=== PATIENT | male | born 1965 | race Two or more races ===

== ENCOUNTER 2023-01-28 10:12 | Emergency (ER) | payer OTHER, SELFPAY ==
[2023-01-28 10:20] VITALS: BP 200/112; PULSE 120; RESP 20; TEMP 39.3; O2SAT 93; BMI 49.9
--- NOTE | 2023-01-28 10:33 | CRLHL7_ITS ---
For Patients: As a result of the Century Cures Act, medical imaging exams and procedure reports are released immediately into your electronic medical record. You may view this report before your referring provider. If you have questions, please contact your health care provider. INDICATION: Cough TECHNIQUE: Chest 1 view. COMPARISON: 13 October 2017 FINDINGS: Cardiovascular and mediastinum: Heart size and vasculature are normal in caliber and appearance. Mediastinum is within normal limits. Lungs and pleural space: Lungs are clear. No sign of infiltrate or mass. No sign of pleural effusion. No pneumothorax. Bones and soft tissues: No significant findings. IMPRESSION: Unremarkable chest. Dictated by Tato Thakur MD @ 01/28/2023 10:53:30 AM (Electronically Signed)
--- NOTE | 2023-01-28 10:36 | ED.GENADULT ---
HPI - General Adult General Time Seen by Provider: 10:36 Date Seen: 01/28/23 Chief complaint: Cough Stated complaint: Cough, pain in back, weakness Time Seen by Provider: 01/28/23 10:26 Source: patient Mode of arrival: ambulatory Limitations: no limitations History of Present Illness HPI narrative: Patient is a 57-year-old [id number] male who through his daughter reports after they declined [email or web address], that he has severe cough, body aches, weakness. He has had a temperature, he has had a cough. His daughter reports that he does smoke. She reports also she has had the COVID vaccine. He takes no medications at home, he has had no chronic respiratory problems he has had no history of chest pain or cardiac disease, he has had no history of COPD. The patient has no rigors but is very weak. He feels short of breath with exertion. Related Data Previous Rx's Medication Instructions Recorded hydrocodone 5 mg-acetaminophen 325 1 tab PO BID PRN pain #7 tabs 01/28/23 mg tablet Allergies Allergy/AdvReac Type Severity Reaction Status Date / Time No Known Drug Allergies Allergy Verified 01/28/23 10:19 Review of Systems Status of ROS: Reports: 6 or more systems reviewed and unremarkable except as noted in History and below PFSH PFS Social History Non-prescribed substance use: denies use Exam Narrative: Exam Narrative: Objective: Temp is 102.8? Pulse is 120 Blood pressure 200/112 O2 sat 93% on room air Alert orient x3 Noncyanotic Does appear in [id number] discomfort from illness. HEENT is unremarkable and dry mucous membranes neck supple chest diminished air exchange bilaterally Heart rhythm regular 2/6 systolic murmur Abdomen obese benign nontender Extremities are no edema neurologic nonfocal Patient is weak and with standing and walking he feels like he has to sit down. Const: Vital Signs, click to edit/add: Vital Signs - 24 hr 01/28/23 10:20 01/28/23 11:34 01/28/23 11:35 Temperature 102.8 F H Pulse Rate 115 H 113 H Pulse Rate [Pulse Oximeter] 120 H Respiratory Rate 20 Blood Pressure 177/96 H Blood Pressure [Ri ght Upper Arm] 200/112 H Pulse Oximetry 93 91 92 Oxygen Delivery Me thod Room Air 01/28/23 11:45 01/28/23 12:00 01/28/23 12:02 Temperature Pulse Rate 115 H 107 H 108 H Pulse Rate [Pulse Oximeter] Respiratory Rate Blood Pressure 172/96 H Blood Pressure [Ri ght Upper Arm] Pulse Oximetry 90 93 93 Oxygen Delivery Me thod Course Vital Signs Vital signs: Initial Vital Signs Temperature 102.8 F H 01/28/23 10:20 Temperature Source Temporal Artery Scan 01/28/23 10:20 Pulse Rate 120 H 01/28/23 10:20 Respiratory Rate 20 01/28/23 10:20 Blood Pressure 200/112 H 01/28/23 10:20 Blood Pressure Mean 141 H 01/28/23 10:20 Pulse Oximetry 93 01/28/23 10:20 Oxygen Delivery Method Room Air 01/28/23 10:20 Vital Signs Temperature 102.8 F H 01/28/23 10:20 Pulse Rate 120 H 01/28/23 10:20 Respiratory Rate 20 01/28/23 10:20 Blood Pressure 200/112 H 01/28/23 10:20 Pulse Oximetry 93 01/28/23 10:20 Oxygen Delivery Method Room Air 01/28/23 10:20 Temperature 102.8 F H 01/28/23 10:20 Pulse Rate 108 H 01/28/23 12:02 Respiratory Rate 20 01/28/23 10:20 Blood Pressure 172/96 H 01/28/23 12:02 Pulse Oximetry 93 01/28/23 12:02 Oxygen Delivery Method Room Air 01/28/23 10:20 Medications Administered Medications: Discontinued Medications Generic Name Dose Route Start Last Admin Trade Name Bryan PRN Reason Stop Dose Admin Acetaminophen 1,000 mg 01/28/23 10:33 01/28/23 11:00 Acetaminophen 500 Mg Tablet PO 01/28/23 10:34 1,000 mg ONCE ONE Administration Hydrocodone Bitart/Acetaminophen 1 tab 01/28/23 11:11 01/28/23 11:39 Hydrocodone/Acetamin 7.5-325 Tablet PO 01/28/23 11:12 1 tab ONCE ONE Administration Sodium Chloride 1,000 mls @ 6,000 mls/hr 01/28/23 10:45 01/28/23 11:00 0.9 % Sodium Chloride 1000 Ml IV 01/28/23 10:54 6,000 mls/hr .Q10M BIANCA Administration Ibuprofen 800 mg 01/28/23 11:11 01/28/23 11:38 Ibuprofen 400 Mg Tablet PO 01/28/23 11:12 800 mg ONCE ONE Administration Medical Decision Making MDM Narrative Medical decision making narrative: 57-year-old male smoker with significant fever of 102.8, cough, rule out pneumonia, rule out COVID/influenza/RSV. Patient will get a chest x-ray, blood cultures, viral studies, electrolytes and labs. IV fluid 1 L, antibiotics if x-ray looks suspicious. Disposition pending findings above The patient's chest x-ray by my review looks unremarkable. Addendum: 11:51 a.m. patient is positive for RSV, negative for COVID influenza. Chest x-ray looks largely unremarkable, lab studies look pretty reasonable as well with white count minimally elevated at 15,450 thousand four hundred fifty hemoglobin 16.7 your profile shows a slightly low potassium 3.2 glucose nonfasting 160 lactate 2.1 CRP 3.5 and again RSV is positive. Will give a trial of some [place] as needed for cough suppression and pain relief, may use Advil as needed, recheck with regular doctor in a couple of days recommend off activity off work for 3 days. Also if not feeling better would recommend recheck. Lab Data Labs: Lab Results 01/28/23 01/28/23 Range/Units 10:25 11:00 WBC 15.45 H (4.50-11.00) K/uL RBC 5.25 (4.30-5.90) m/uL Hgb 16.7 (13.5-17.5) gm/dL Hct 48.2 (37.0-53.0) % MCV 92 (80-100) fL MCH 32 (26-34) pg MCHC 35 (32-36) gm/dL RDW Coeff of Arielle 12.7 (11.5-15.5) % Plt Count 150 (140-440) K/uL Neut % (Auto) 90.1 H (42.0-72.0) % Lymph % (Auto) 2.7 L (20-44) % Dane % (Auto) 6.9 (0.0-11.0) % Eos % (Auto) 0.0 (0.0-7.0) % Baso % (Auto) 0.1 (0.0-3.0) % Neut # (Auto) 13.90 H (1.7-7.0) K/uL Lymph # (Auto) 0.40 L (0.90-2.90) K/uL Dane # (Auto) 1.10 H (0.00-0.90) K/UL Eos # (Auto) 0.00 (0.00-0.50) K/uL Baso # (Auto) 0.00 (0.00-0.30) K/uL Abs Immat Gran (auto) 0.00 (0.00-0.30) K/uL Imm/Tot Granulo (auto) 0.2 % Sodium 135 (135-149) mmol/L Potassium 3.2 L (3.6-5.1) mmol/L Chloride 100 (96-114) mmol/L Carbon Dioxide 22 (20-32) mmol/L Anion Gap 13 (7-15) mEq/L BUN 10 (7-30) mg/dL Creatinine 0.6 (0.5-1.5) mg/dL Estimated Creat Clear 118.16 Estimated GFR 113 ml/min Glucose 160 H (60-115) mg/dL Lactate 2.1 H (0.5-1.9) mmol/L Calcium 9.0 (8.4-10.6) mg/dL Total Bilirubin 0.7 (0.1-1.5) mg/dL Direct Bilirubin 0.0 (0.0-0.5) mg/dL AST 38 H (12-35) U/L ALT 35 (4-50) U/L Alkaline Phosphatase 89 (40-150) U/L C-Reactive Protein 3.5 H (0.5-1.0) mg/dL NT-Pro-B Natriuret Pep 1280 pg/mL Total Protein 8.3 (6.0-8.3) g/dL Albumin 4.9 (3.3-5.0) g/dL SARS-CoV-2 (PCR) Negative SARS-CoV-2 (Negative) Influenza Type A (PCR) Negative PCR FLU A (Negative) Influenza Type B (PCR) Negative PCR FLU B (Negative) RSV (PCR) POSITIVE PCR RSV A (Negative) Discharge Plan Discharge Clinical Impression: Cough with fever, RSV infection Patient Disposition: Home w/ Parent or Adult Condition: Stable Instructions: RSV (Respiratory Syncytial Virus) (ED) Additional Instructions: Rest, Tylenol, may use ibuprofen as well, will give you a few tablets of a medicine called Ammon for pain relief and some cough suppression. Recommend you avoid work for the next 3-4 days, you have an RSV infection which is severe cold infection. Return to ED as needed problems or concerns. Recommend he drink lots of water and fluids. Activity Level: Light activity Activity Detail: off work x 3 days Prescriptions: New hydrocodone-acetaminophen 5-325 mg tablet 1 tab PO BID PRN (Reason: pain) Qty: 7 0RF Stand Alone Forms: [employer] Info Instructions
[2023-01-28] MEDS: 0.9 % SODIUM CHLORIDE 1000 ml 1,000 ML 6000 ML IV (11:00)
[2023-01-28] MEDS: ACETAMINOPHEN 500 MG TABLET 1000 MG PO (11:00)
[2023-01-28 11:06] LABS: PCR FLU A Negative PCR FLU A (Negative); PCR FLU B Negative PCR FLU B (Negative); PCR RSV POSITIVE PCR RSV (Negative)
[2023-01-28 11:08] LABS: SARS PCR* Negative SARS-CoV-2 (Negative)
[2023-01-28 11:12] LABS: Lactate* 2.1 mmol/L (0.5-1.9)
[2023-01-28 11:15] LABS: Basophils Percent Auto 0.1 % (0.0-3.0); Hematocrit 48.2 % (37.0-53.0); Hemoglobin* 16.7 gm/dL (13.5-17.5); Immature Granulocytes Pct Auto 0.2 %; Lymphocytes Percent Auto 2.7 % (20-44); Mean Corpuscular HGB Conc 35 gm/dL (32-36); Mean Corpuscular Hemoglobin 32 pg (26-34); Mean Corpuscular Volume 92 fL (80-100); Monocytes Percent Auto 6.9 % (0.0-11.0); Neutrophils Percent Auto 90.1 % (42.0-72.0); Platelet Count* 150 K/uL (140-440); RDW Coefficient of Variation % 12.7 % (11.5-15.5); Red Blood Count 5.25 m/uL (4.30-5.90); White Blood Count* 15.45 K/uL (4.50-11.00)
[2023-01-28 11:21] LABS: Slide Review Reflex No
[2023-01-28 11:27] LABS: Albumin* 4.9 g/dL (3.3-5.0); Chloride* 100 mmol/L (96-114)
[2023-01-28 11:28] LABS: Potassium* 3.2 mmol/L (3.6-5.1); Sodium* 135 mmol/L (135-149)
[2023-01-28 11:30] LABS: Anion Gap 13 mEq/L (7-15); Carbon Dioxide* 22 mmol/L (20-32); Creatinine* 0.6 mg/dL (0.5-1.5); Est. Creatinine Clearance* 118.16; Estimated Glomerular Filt Rate 113 ml/min
[2023-01-28 11:31] LABS: Alanine Aminotransferase* 35 U/L (4-50); Alkaline Phosphatase* 89 U/L (40-150); Aspartate Amino Transferase* 38 U/L (12-35); Bilirubin Total* 0.7 mg/dL (0.1-1.5); Blood Urea Nitrogen* 10 mg/dL (7-30); Glucose* 160 mg/dL (60-115); Total Protein* 8.3 g/dL (6.0-8.3)
[2023-01-28 11:34] VITALS: BP 177/96; PULSE 115; O2SAT 91
[2023-01-28 11:34] LABS: C Reactive Protein* 3.5 mg/dL (0.5-1.0)
[2023-01-28 11:35] VITALS: PULSE 113; O2SAT 92
[2023-01-28] MEDS: IBUPROFEN 400 MG TABLET 800 MG PO (11:38)
[2023-01-28] MEDS: HYDROCODONE/ACETAMIN 7.5-325 TABLET 1 TAB PO (11:39)
[2023-01-28 11:40] LABS: NT Pro B Type NatriureticPept* 1280 pg/mL
[2023-01-28 11:45] VITALS: PULSE 115; O2SAT 90
[2023-01-28 12:00] VITALS: PULSE 107; O2SAT 93
[2023-01-28 12:02] VITALS: BP 172/96; PULSE 108; O2SAT 93
== END 2023-01-28 12:49 | disposition home or self-care (01) ==
LOC: ED 11:20
PROVIDERS: Emergency Provider Family Medicine
DX: R50.9 Fever, unspecified (principal); R05.9 Cough, unspecified; B97.4 Respiratory syncytial virus as the cause of diseases classified elsewhere
CPT/HCPCS: 36415; 71045; 80048; 80076; 83605; 83880; 85025; 86140; 87040; 87631; 99284; A9270; J7030

== ENCOUNTER 2023-01-30 07:49 | Emergency (ER) | payer OTHER, SELFPAY ==
[2023-01-30] VITALS (39 sets, daily range): BP systolic 120–178; BP diastolic 74–128; PULSE 94–130; RESP 26–38; TEMP 36.3–37.3; O2SAT 88–95; BMI 49.9
--- NOTE | 2023-01-30 08:36 | CRLHL7_ITS ---
For Patients: As a result of the Century Cures Act, medical imaging exams and procedure reports are released immediately into your electronic medical record. You may view this report before your referring provider. If you have questions, please contact your health care provider. INDICATION: Dyspnea COMPARISON: January 28, 2023 TECHNIQUE: Two views of the chest were acquired FINDINGS: TUBES AND LINES: None. HEART AND MEDIASTINUM: Top-normal size heart similar in appearance to the prior study.. LUNGS AND PLEURAL SPACES: There are 2 large masslike areas of consolidation on the right. There also may be a smaller masslike area of consolidation at the medial left base. These are entirely new in the two-day interval. These are presumably inflammatory. Consider CT for further evaluation. No pleural effusion or pneumothorax. OSSEOUS STRUCTURES: Age-appropriate appearance. No acute focal finding. IMPRESSION: Large masslike areas of consolidation which are entirely new since January 28, 2023. Presumably inflammatory. Consider CT for further evaluation. Dictated by Hunter Arellano MD @ 01/30/2023 10:20:52 AM (Electronically Signed)
--- NOTE | 2023-01-30 08:44 | ED.SOB ---
HPI - SOB/Dyspnea General Chief Complaint: Shortness of Breath/Dyspnea Stated Complaint: difficulty breathing Time Seen by Provider: 01/30/23 08:07 History of Present Illness HPI Narrative: This 57-year-old male comes in with cough, shortness of breath, nausea, vomiting, and diarrhea. These symptoms started about 3 or 4 days ago and he was seen in this emergency department 2 days ago. At that time he was positive for RSV. He returns today with worsening symptoms and arrives with tachycardia with a pulse at 124 and tachypnea with respirations at 26 per minute. His oximetry is 92% on 2 L oxygen. He is afebrile currently but states that he has had fevers. He is also reporting some pain in his right upper quadrant. He has had his appendix removed. Related Data Previous Rx's Medication Instructions Recorded hydrocodone 5 mg-acetaminophen 325 1 tab PO BID PRN pain #7 tabs 01/28/23 mg tablet Allergies Allergy/AdvReac Type Severity Reaction Status Date / Time No Known Drug Allergies Allergy Verified 01/28/23 10:19 Review of Systems Status of ROS: Reports: 10 or more systems reviewed and unremarkable except as noted in History and below Narrative: Constitutional: No weight gain or loss. He reports fevers. Eyes: No discharge. No vision changes. HENT: No congestion, no sore throat, no ear pain. Cardiovascular: No chest pain, no palpitations. Respiratory: Cough with shortness of breath. Gastrointestinal: Right upper quadrant abdominal pain. Vomiting and diarrhea. Genitourinary: No dysuria, no hematuria. Musculoskeletal: Normal range of motion. Skin: No rashes, no pruritis. Neurological: No dizziness, weakness, sensory change, speech change. Endo/Heme/Allergies: No bruising or bleeding. No polydipsia. Pysch: no suicidality, no anxiety, no insomnia. All other systems reviewed and are negative. [facility] Social History Smoking Status: Current some day smoker How often do you have a drink containing alcohol: monthly or less How often do you have six or more drinks on one occasion: Monthly AUDIT-C Alcohol total score: 3 Non-prescribed substance use: denies use Exam Narrative: Exam Narrative: Constitutional: Well-developed, well-nourished. HEENT: Normocephalic, atraumatic. Neck: Normal range of motion. Nontender. Supple. Heart: Regular. No murmurs. Tachycardia. Intact distal pulses. Lungs: Tachypnea with some use of accessory muscles for breathing. Bilateral rhonchi. Abdomen: Normal bowel sounds. Right upper quadrant tenderness. No rebound tenderness. Genitalia: Deferred. Back: No midline tenderness. Normal range of motion. Extremities: Normal range of motion. No injury. Skin: Intact. No rash. Warm. No erythema or pallor. Neurologic: No altered sensation. No weakness. Alert and oriented. Psychiatric: No suicidality. No anxiety or depression. No insomnia. Nursing notes and vitals signs are reviewed. Const: Vital Signs, click to edit/add: Vital Signs - 24 hr 01/30/23 08:00 01/30/23 08:24 01/30/23 08:30 Temperature 97.3 F L Pulse Rate 120 H 130 H Pulse Rate [Pulse Oximeter] 124 H Respiratory Rate 26 H Blood Pressure Blood Pressure [Ri ght Upper Arm] 144/105 H Pulse Oximetry 92 92 90 Oxygen Delivery Me thod Nasal Cannula Nasal Cannula Nasal Cannula Oxygen Flow Rate 2.0 2 2 Fraction of Inspir ed Oxygen 01/30/23 08:34 01/30/23 08:45 01/30/23 09:00 Temperature Pulse Rate 123 H 122 H 125 H Pulse Rate [Pulse Oximeter] Respiratory Rate Blood Pressure 153/106 H Blood Pressure [Ri ght Upper Arm] Pulse Oximetry 92 92 90 Oxygen Delivery Me thod Nasal Cannula Nasal Cannula Nasal Cannula Oxygen Flow Rate 2 2 2 Fraction of Inspir ed Oxygen 01/30/23 09:02 01/30/23 09:32 01/30/23 09:59 Temperature Pulse Rate 126 H 123 H Pulse Rate [Pulse Oximeter] Respiratory Rate Blood Pressure 153/104 H 159/102 H Blood Pressure [Ri ght Upper Arm] Pulse Oximetry 94 91 Oxygen Delivery Me thod Nasal Cannula Nasal Cannula Nasal Cannula Oxygen Flow Rate 2 2 2 Fraction of Inspir ed Oxygen 01/30/23 10:00 01/30/23 10:04 01/30/23 10:05 Temperature Pulse Rate 129 H 127 H 126 H Pulse Rate [Pulse Oximeter] Respiratory Rate Blood Pressure 123/88 Blood Pressure [Ri ght Upper Arm] Pulse Oximetry 92 89 88 Oxygen Delivery Me thod Nasal Cannula Nasal Cannula Nasal Cannula Oxygen Flow Rate 2 3 2 Fraction of Inspir ed Oxygen 01/30/23 10:15 01/30/23 10:30 01/30/23 10:32 Temperature Pulse Rate 119 H 119 H Pulse Rate [Pulse Oximeter] Respiratory Rate Blood Pressure 169/100 H Blood Pressure [Ri ght Upper Arm] Pulse Oximetry 88 91 Oxygen Delivery Me thod Nasal Cannula Nasal Cannula Nasal Cannula Oxygen Flow Rate 2 3 8 Fraction of Inspir ed Oxygen 01/30/23 10:38 01/30/23 10:41 01/30/23 10:45 Temperature Pulse Rate 116 H 116 H 115 H Pulse Rate [Pulse Oximeter] Respiratory Rate Blood Pressure 178/128 H 155/109 H Blood Pressure [Ri ght Upper Arm] Pulse Oximetry 94 94 93 Oxygen Delivery Me thod Nasal Cannula Nasal Cannula BiPAP Oxygen Flow Rate 8 10 Fraction of Inspir ed Oxygen 01/30/23 10:58 01/30/23 11:00 01/30/23 11:10 Temperature Pulse Rate 94 115 H 119 H Pulse Rate [Pulse Oximeter] Respiratory Rate Blood Pressure 120/84 160/102 H Blood Pressure [Ri ght Upper Arm] Pulse Oximetry 95 92 92 Oxygen Delivery Me thod BiPAP BiPAP High Flow Nasal Ca nnula Oxygen Flow Rate 40 Fraction of Inspir ed Oxygen 100 01/30/23 11:13 01/30/23 11:15 01/30/23 11:30 Temperature 98.6 F Pulse Rate 120 H 112 H Pulse Rate [Pulse Oximeter] Respiratory Rate Blood Pressure Blood Pressure [Ri ght Upper Arm] Pulse Oximetry 94 95 Oxygen Delivery Me thod High Flow Nasal Ca nnula High Flow Nasal Ca nnula Oxygen Flow Rate 40 40 Fraction of Inspir ed Oxygen 100 100 01/30/23 11:31 01/30/23 11:45 01/30/23 12:00 Temperature Pulse Rate 110 H 115 H 108 H Pulse Rate [Pulse Oximeter] Respiratory Rate Blood Pressure 132/74 Blood Pressure [Ri ght Upper Arm] Pulse Oximetry 94 94 93 Oxygen Delivery Me thod High Flow Nasal Ca nnula High Flow Nasal Ca nnula High Flow Nasal Ca nnula Oxygen Flow Rate 40 40 40 Fraction of Inspir ed Oxygen 100 100 100 01/30/23 12:03 01/30/23 12:15 01/30/23 12:32 Temperature Pulse Rate 109 H 111 H Pulse Rate [Pulse Oximeter] Respiratory Rate 38 H Blood Pressure 148/82 H Blood Pressure [Ri ght Upper Arm] Pulse Oximetry 92 89 Oxygen Delivery Me thod High Flow Nasal Ca nnula High Flow Nasal Ca nnula Oxygen Flow Rate 40 40 Fraction of Inspir ed Oxygen 100 100 Course Vital Signs Vital signs: Initial Vital Signs Temperature 97.3 F L 01/30/23 08:00 Temperature Source Temporal Artery Scan 01/30/23 08:00 Pulse Rate 124 H 01/30/23 08:00 Respiratory Rate 26 H 01/30/23 08:00 Blood Pressure 144/105 H 01/30/23 08:00 Blood Pressure Mean 118 H 01/30/23 08:00 Pulse Oximetry 92 01/30/23 08:00 Oxygen Delivery Method Nasal Cannula 01/30/23 08:00 Oxygen Flow Rate 2.0 01/30/23 08:00 Vital Signs Temperature 97.3 F L 01/30/23 08:00 Pulse Rate 124 H 01/30/23 08:00 Respiratory Rate 26 H 01/30/23 08:00 Blood Pressure 144/105 H 01/30/23 08:00 Pulse Oximetry 92 01/30/23 08:00 Oxygen Delivery Method Nasal Cannula 01/30/23 08:00 Oxygen Flow Rate 2.0 01/30/23 08:00 Temperature 98.6 F 01/30/23 11:13 Pulse Rate 111 H 01/30/23 12:15 Respiratory Rate 38 H 01/30/23 12:32 Blood Pressure 148/82 H 01/30/23 12:03 Pulse Oximetry 89 01/30/23 12:15 Oxygen Delivery Method High Flow Nasal Cannula 01/30/23 12:15 Oxygen Flow Rate 40 01/30/23 12:15 Fraction of Inspired Oxygen 100 01/30/23 12:15 Medications Administered Medications: Discontinued Medications Generic Name Dose Route Start Last Admin Trade Name Freq PRN Reason Stop Dose Admin Sodium Chloride 1,000 mls @ 1,000 mls/hr 01/30/23 09:45 01/30/23 12:48 0.9 % Sodium Chloride 1000 Ml IV 01/30/23 10:44 Infused .Q1H BIANCA Infusion Piperacillin Sod/Tazobactam 100 mls @ 200 mls/hr 01/30/23 10:15 01/30/23 11:15 Sod 3.375 gm/ Sodium Chloride IVPB 01/30/23 10:16 Infused ONCE ONE Infusion Vancomycin HCl 2,000 mg/ 520 mls @ 260 mls/hr 01/30/23 10:30 01/30/23 12:10 Sodium Chloride IVPB 01/30/23 12:29 Infused ONCE ONE Infusion Protocol Lorazepam 0.5 mg 01/30/23 12:34 01/30/23 12:39 Lorazepam 2 Mg/Ml Inj IV 01/30/23 12:35 0.5 mg ONCE ONE Administration Morphine Sulfate 4 mg 01/30/23 11:41 01/30/23 11:50 Morphine 4 Mg/Ml Inj IVP 01/30/23 11:42 4 mg ONCE ONE Administration MDM - SOB/Dyspnea MDM Narrative Medical decision making narrative: This patient comes in with cough and shortness of breath. He is afebrile but arrives with tachycardia and tachypnea. He has not had any fevers. He arrives needing 2 L nasal cannula and has oximetry at 92%. He began to require more support of his breathing with increased oxygen. He was administered BiPAP briefly and did not tolerate this intervention. He is currently on high-flow heated oxygen and is maintaining oximetry around 92-94%. He continues to have tachycardia with heart rate around 110 beats per minute and respiratory rate increased into the mid to upper 30s. His temp is continued to be normal. Lab results returned with some remarkable findings. His lactate level returns at 3.0. The patient did received 2 L of IV fluids which is close to 15 milliliters/kilogram. His labs were done a couple days ago and there are notable changes over these past couple days. His kidney function is significantly decreased. Creatinine went from 0.6-4.2 and BUN went from 10-57. It seems that this is a primarily pre renal azotemia. His D-dimer returns elevated at 1.[address] scan was not done with IV contrast given his kidneys situation. His suspicion for blood clot is rather low. A CT scan of the chest was obtained without contrast and shows bilateral consolidations typical of pneumonia possibly due to aspiration. Additionally his white count 2 days ago was around 15,000 and today returns at 1470. After blood cultures were obtained the patient received IV doses of Zosyn and vancomycin. He is complaining of pain initially in the right upper quadrant and throughout his stay here began to have more chest pain which is due to his pneumonia. An ultrasound of the right upper quadrant showed normal-appearing gallbladder. The patient did receive an IV dose of morphine 4 mg and later Ativan 0.5 mg. There is no beds available here for admission. I did speak with the hospitalist at [facility] who stated that there are no beds available there but he would be 1st on the wait list. Meanwhile conversation occurred with [facility] who is willing to accept him. Dr. Shrestha and Dr. Benavides were physicians at I spoke with their who agree to his transfer there. The patient is on the verge of needing more definitive airway management but is maintaining with high-flow oxygen. An attempt was made to consider transport by helicopter but weather is not allowing such today. He is being transferred by ambulance. Time spent in critical care of this patient was 60 minutes. Lab Data Labs: Lab Results 01/30/23 01/30/23 Range/Units 08:39 08:55 WBC 1.47 L* (4.50-11.00) K/uL RBC 5.50 (4.30-5.90) m/uL Hgb 17.4 (13.5-17.5) gm/dL Hct 51.2 (37.0-53.0) % MCV 93 (80-100) fL MCH 32 (26-34) pg MCHC 34 (32-36) gm/dL RDW Coeff of Arielle 13.2 (11.5-15.5) % Plt Count 120 L (140-440) K/uL Neut % (Auto) 77.5 H (42.0-72.0) % Lymph % (Auto) 10.2 L (20-44) % [place] % (Auto) 7.5 (0.0-11.0) % Eos % (Auto) 0.0 (0.0-7.0) % Baso % (Auto) 0.0 (0.0-3.0) % Neut # (Auto) 1.10 L (1.7-7.0) K/uL Lymph # (Auto) 0.10 L (0.90-2.90) K/uL [place] # (Auto) 0.10 (0.00-0.90) K/UL Eos # (Auto) 0.00 (0.00-0.50) K/uL Baso # (Auto) 0.00 (0.00-0.30) K/uL Abs Immat Gran (auto) 0.10 (0.00-0.30) K/uL Imm/Tot Granulo (auto) 4.8 % Diff Slide Review Acceptable Review (Acceptable) D-Dimer Quant (PE/DVT) 1.70 H (0.00-0.50) ug/ml VBG pH 7.281 L (7.32-7.43) VBG pCO2 44 (40-50) mmHG VBG pO2 91.0 H (25-47) mmHG VBG HCO3 21 (21-28) mmol/L Sodium 136 (135-149) mmol/L Potassium 3.8 (3.6-5.1) mmol/L Chloride 100 (96-114) mmol/L Carbon Dioxide 19 L (20-32) mmol/L Anion Gap 17 H (7-15) mEq/L BUN 57 H (7-30) mg/dL Creatinine 4.2 H (0.5-1.5) mg/dL Estimated Creat Clear 16.88 Estimated GFR 16 ml/min Glucose 128 H (60-115) mg/dL Lactate 3.0 H (0.5-1.9) mmol/L Calcium 8.6 (8.4-10.6) mg/dL Total Bilirubin 0.7 (0.1-1.5) mg/dL Direct Bilirubin 0.2 (0.0-0.5) mg/dL AST 42 H (12-35) U/L ALT 30 (4-50) U/L Alkaline Phosphatase 63 (40-150) U/L Total Protein 7.6 (6.0-8.3) g/dL Albumin 4.2 (3.3-5.0) g/dL POC Troponin I 0.01 (0.01-0.04) ng/ml Imaging Data CT scan - chest: Radiologist's impression: Multifocal dense consolidations throughout the lungs bilaterally, most conspicuous in the dependent aspect of the right upper lobe and throughout the bilateral lower lobes. Most likely differential is extensive multifocal pneumonia, pattern of distribution suggests aspiration pneumonia. ECG Data Attestation: I personally reviewed and interpreted this ECG as follows: Interpretation: Sinus tachycardia, rate 121 beats per minute. There are no specific ST or T-wave abnormalities. Repeat EKG shows sinus tachycardia, rate 115 beats per minute. There are no specific ST or T-wave abnormalities. Critical Care Time Critical Care Time Critical Care Time: Yes Attestation: The patient required my highest level preparedness to intervene emergently and I personally spent this critical care time directly and personally managing the patient. This critical care time included: Obtaining a history; Examining the patient; Pulse oximetry; Ordering and reviewing of studies; Arranging urgent treatment with development of a management plan; Evaluation of patients response to treatment; Frequent reassessment discussions with other providers. This critical care time was performed to assess and manage the high probability of imminent life-threatening deterioration that could result in multiorgan failure. It was exclusive of separate billable procedures and treating other patients and teaching time. Total Critical Care Time in Minutes: 60 Discharge Plan Discharge Clinical Impression: Hypoxia, Pneumonia Patient Disposition: [facility] Condition: Unchanged Prescriptions: No Action hydrocodone-acetaminophen 5-325 mg tablet 1 tab PO BID PRN (Reason: pain) Qty: 7 0RF Follow Up/Referrals: Provider,Not a Local [Primary Care Provider] - Stand Alone Forms: [facility] Info Instructions Procedures Ultrasound Biliary exam #1: Anatomical areas examined: gallbladder, long and short axis Indications: RUQ/epigastric pain Exam type: limited abdominal ultrasound; RUQ Impression: normal exam Description/Findings: No evidence of cholelithiasis or cholecystitis.
[2023-01-30 09:22] LABS: Hematocrit 51.2 % (37.0-53.0); Hemoglobin* 17.4 gm/dL (13.5-17.5); Immature Granulocytes Pct Auto 4.8 %; Lymphocytes Percent Auto 10.2 % (20-44); Mean Corpuscular HGB Conc 34 gm/dL (32-36); Mean Corpuscular Hemoglobin 32 pg (26-34); Mean Corpuscular Volume 93 fL (80-100); Monocytes Percent Auto 7.5 % (0.0-11.0); Neutrophils Percent Auto 77.5 % (42.0-72.0); Platelet Count* 120 K/uL (140-440); RDW Coefficient of Variation % 13.2 % (11.5-15.5)
[2023-01-30 09:32] LABS: Troponin, Point-of-Care* 0.01 ng/ml (0.01-0.04)
[2023-01-30 09:40] LABS: Albumin* 4.2 g/dL (3.3-5.0); Chloride* 100 mmol/L (96-114); Sodium* 136 mmol/L (135-149)
[2023-01-30 09:42] LABS: Total Protein* 7.6 g/dL (6.0-8.3)
[2023-01-30 09:43] LABS: Alanine Aminotransferase* 30 U/L (4-50); Alkaline Phosphatase* 63 U/L (40-150); Aspartate Amino Transferase* 42 U/L (12-35); Bilirubin Direct* 0.2 mg/dL (0.0-0.5); Bilirubin Total* 0.7 mg/dL (0.1-1.5); Potassium* 3.8 mmol/L (3.6-5.1)
[2023-01-30 09:44] LABS: Anion Gap 17 mEq/L (7-15); Blood Urea Nitrogen* 57 mg/dL (7-30); Calcium* 8.6 mg/dL (8.4-10.6); Carbon Dioxide* 19 mmol/L (20-32); Glucose* 128 mg/dL (60-115)
[2023-01-30 09:52] LABS: Creatinine* 4.2 mg/dL (0.5-1.5); Est. Creatinine Clearance* 16.88; Estimated Glomerular Filt Rate 16 ml/min
[2023-01-30] MEDS: 0.9 % SODIUM CHLORIDE 1000 ml 1,000 ML IV (10:00)
[2023-01-30 10:03] LABS: White Blood Count* 1.47 K/uL (4.50-11.00)
[2023-01-30 10:04] LABS: Slide Review Reflex Yes
[2023-01-30 10:08] LABS: Slide Review Acceptable Review (Acceptable)
--- NOTE | 2023-01-30 10:18 | ED.NURSE ---
pt is complaining of back pain 12/05
--- NOTE | 2023-01-30 10:24 | ED.NURSE ---
Pt oxygen is at 87 on 2L nasal cannula. RT is aware of pt
[2023-01-30 10:25] LABS: HCO3 VBG 21 mmol/L (21-28); PCO2 VBG 44 mmHG (40-50); pH VBG 7.281 (7.32-7.43)
--- NOTE | 2023-01-30 10:25 | CRLHL7_ITS ---
For Patients: As a result of the Century Cures Act, medical imaging exams and procedure reports are released immediately into your electronic medical record. You may view this report before your referring provider. If you have questions, please contact your health care provider. INDICATION: Cough, fever. TECHNIQUE: CT chest without IV contrast. COMPARISON: Chest radiographs dated 01/30/2023, 01/28/2023. FINDINGS: Lungs and pleura: Multifocal dense consolidations throughout the lungs bilaterally, most conspicuous in the dependent aspect of the right upper lobe, and throughout the bilateral lower lobes. Heart and vasculature: No cardiomegaly, no pericardial effusion. Thyroid and lower neck: No suspicious thyroid nodule. Mediastinum/aicha: No lymphadenopathy. Chest wall: No axillary lymphadenopathy. Upper abdomen: No acute abnormality. Distended stomach is noted, dependent hyperdense material is presumably recently ingested enteric content. Bones: Multilevel degenerative changes of the spine. No suspicious/aggressive focal osseous lesion. IMPRESSION: Multifocal dense consolidations throughout the lungs bilaterally, most conspicuous in the dependent aspect of the right upper lobe and throughout the bilateral lower lobes. Most likely differential is extensive multifocal pneumonia, pattern of distribution suggests aspiration pneumonia. Please note that all CT scans at this facility use dose modulation, iterative reconstruction, and/or weight-based dosing when appropriate to reduce radiation dose to as low as reasonably achievable. Dictated by Kirt Schafer MD @ 01/30/2023 12:36:58 PM (Electronically Signed)
[2023-01-30] MEDS: PIPERACILLIN/TAZOBACTAM 3.375 GM in 0.9 % SODIUM CHLORIDE Mini-bag 100 ML IVPB (10:45)
[2023-01-30] MEDS: MORPHINE 4 MG/ML INJ IVP (11:50)
[2023-01-30] MEDS: LORazepam 2 MG/ML inj 0.5 MG IV (12:39)
--- NOTE | 2023-01-30 12:50 | ED.NURSE ---
Pt had an intake of 700mls out of 1000mls of normal saline.
--- NOTE | 2023-01-30 13:00 | ED.NURSE ---
Pt was bahamian speaking, the [employer] science teacher was called for this pt and his family.
--- NOTE | 2023-01-30 13:48 | ED.NURSE ---
Pt report given to EMS, and to the ICU nurse at [facility] in [place].
--- NOTE | 2023-01-30 13:53 | ED.NURSE ---
Pt was on high flow nasal cannula, and the respiratory therapist switched the patient over to the Bipap. Bipap settings were 100% oxygen, 17-34 respirations, 10/5 and 1500.
--- NOTE | 2023-01-30 17:57 | ED.NURSE ---
prelim blood culture results faxed to [facility] at [phone]
--- NOTE | 2023-01-30 18:00 | RESP.RT ---
With pt from admission to transfer to [place]. He initially was on 3 L, moved to oxymask, then alternated between HFNC, 40L and 100% and BIPAP of 10/5, 15/5, and 20/5 at 1005, aiming for comfort, and successful oxygenation and ventilation. PT was tachycardiac and hypertensive. BBS very coarse Rhonchi. SPO2 90%. Placed pt on R side and SPO2 94%. Initially presented coughing up thick yellow brown sputum, and bright red blood. Pt's acidosis and CXR/CT noted. Suggested 2 times to intubate pt. Transferred pt on BIPAP to [place]. using various BIPAP settings as above. SPo2 90-96% Pt did have a short time off unit and on non rebreather for 10 minutes. Tolerated transfer well. See paramedics run report.
[2023-01-31 01:59] LABS: SARS Antigen* Negative (Negative)
== END 2023-01-30 13:43 | disposition short-term general hospital (02) ==
PROVIDERS: Emergency Provider Emergency Medicine Emergency Medical Services
DX: J18.9 Pneumonia, unspecified organism (principal); R09.02 Hypoxemia
CPT/HCPCS: 36415; 71046; 71250; 76705; 80048; 80076; 82803; 83605; 84484; 85025; 85379; 87040; 87186; 87426; 93005; 94660; 96365; 96366; 96375; 99285; 99291; T1013; J2060; J2270; J2543; J3370; J7030; J7120

== ENCOUNTER 2023-01-30 13:21 | Outpatient (CLI) | payer OTHER, SELFPAY | END 2023-01-30 13:22 | disposition home or self-care (01) | LOC: AMB 02-01 09:36 | PROVIDERS: Visit Provider Family Medicine | DX: J96.90 Respiratory failure, unspecified, unspecified whether with hypoxia or hypercapnia (principal); J18.9 Pneumonia, unspecified organism | CPT/HCPCS: A0425; A0434 ==

== ENCOUNTER 2024-11-20 16:10 | Outpatient (CLI) | payer MEDICAID, SELFPAY | END 2024-11-20 16:11 | disposition home or self-care (01) | PROVIDERS: PCP Family Medicine; Visit Provider Internal Medicine | DX: R35.0 Frequency of micturition (principal); R73.03 Prediabetes | CPT/HCPCS: 80053; 84443; 87086; G0103 ==